=== PATIENT | male | born 1975 | race Hispanic/Latino ===

== ENCOUNTER 2017-01-28 17:21 | Emergency (ER) | payer BC, OTHER ==
--- NOTE | 2017-01-28 20:18 | C.PDOC ---
History Of Present Illness 41 year old male presents to the ED for evaluation of left ankle pain which began after he slipped and sustained a fall at work [employer]. Patient notes he twisted his left ankle during the fall and now has pain to the area. He denies head injury/LOC, nausea, vomiting, extremity numbness/weakness. Time Seen by Provider: 01/28/17 18:23 Chief Complaint (Nursing): Lower Extremity Problem/Injury History Per: Patient History/Exam Limitations: no limitations Onset/Duration Of Symptoms: Hrs Current Symptoms Are (Timing): Still Present Additional History Per: Patient - Ankle/Foot Description Of Injury: Twisted Past Medical History Reviewed: Historical Data, Nursing Documentation, Vital Signs Vital Signs: Last Vital Signs Temp 98.2 F 01/28/17 20:30 Pulse 89 01/28/17 20:30 Resp 18 01/28/17 20:30 BP 138/85 01/28/17 20:30 Pulse Ox 97 01/28/17 21:47 - Medical History PMH: Kidney Stones Surgical History: No Surg Hx Family History: States: Unknown Family Hx - Social History Hx Alcohol Use: Yes Hx Substance Use: No - Immunization History Hx Tetanus Toxoid Vaccination: No Hx Influenza Vaccination: No Hx Pneumococcal Vaccination: No Review Of Systems Gastrointestinal: Negative for: Nausea, Vomiting Musculoskeletal: Positive for: Other (left ankle pain ) Neurological: Negative for: Weakness, Numbness, Other (head injury/LOC ) Physical Exam - Physical Exam Appears: Non-toxic, No Acute Distress Skin: Normal Color, Warm, Dry Head: Atraumatic, Normacephalic Eye(s): bilateral: Normal Inspection, EOMI Nose: Normal Oral Mucosa: Moist Neck: Supple Chest: Symmetrical Respiratory: No Accessory Muscle Use Extremity: Normal ROM, Tenderness (to lateral aspect of left ankle ), No Calf Tenderness, Capillary Refill (less than 2 seconds ), No Deformity, Swelling (to lateral aspect of left ankle ) Pulses: Left Dorsalis Pedis: Normal, Right Dorsalis Pedis: Normal Neurological/Psych: Oriented x3, Normal Speech, Normal Cognition, Normal Sensation ED Course And Treatment O2 Sat by Pulse Oximetry: 97 (on RA) Pulse Ox Interpretation: Normal Progress Note: Left ankle XR ordered, results show no evidence of fracture or dislocation. Tylenol PO administered. Ankle Stirrup Splint applied to left ankle by reconnaissance man and was checked by me. On reassessment, patient is resting comfortably, showing no signs of distress and reports an improvement in his pain. Patient is instructed on RICE care and advised to follow up with his PMD within 1-2 days for further evaluation. Reassessment Condition: Improved Disposition - Disposition Referrals: Donna Mckeon MD [Staff Provider] - Disposition: HOME/ ROUTINE Disposition Time: 20:17 Condition: STABLE Additional Instructions: Rest, ice and elevate the area. Follow up with PMD in 1-2 days. Return to ER if symptoms persist or worsen. Instructions: Ankle Sprain (ED) Forms: [employer] (Telugu), Work Excuse - Clinical Impression Clinical Impression: Ankle sprain - PA / [employer] / Resident Statement MD/DO has reviewed & agrees with the documentation as recorded. - Scribe Statement The provider has reviewed the documentation as recorded by the Scribe (Yesenia Silva) All medical record entries made by the Scribe were at my direction and personally dictated by me. I have reviewed the chart and agree that the record accurately reflects my personal performance of the history, physical exam, medical decision making, and the department course for this patient. I have also personally directed, reviewed, and agree with the discharge instructions and disposition.
[2017-01-28 21:22] VITALS: BP 138/85; PULSE 89; RESP 18; TEMP 98.2
[2017-01-28 21:42] VITALS: O2SAT 97
--- NOTE | 2017-01-29 08:27 | RAD ---
PROCEDURE: Left Ankle Radiographs. HISTORY: pain COMPARISON: None FINDINGS: BONES: Ossification projects inferior to the medial malleolus. Tibiotalar spurring here also present. Inferior medial malleoli osseous hypertrophic changes present. Anterior tibiotalar spurring present. Inferior calcaneal spur. Achilles tendon insertional enthesophyte. Os trigone and os peroneum present JOINTS: Tibiotalar moderate osteoarthritis. Ankle mortise maintained. Talar dome intact SOFT TISSUES: Medial and lateral soft tissue swelling OTHER FINDINGS: None. IMPRESSION: Tibiotalar anterior medial osseous hypertrophic arthrosis. Bordering ossification here inferior to the medial malleolus. Inferior medial malleoli are osseous avulsion -of unknown chronicity probable. Ossific debris-another consideration. Calcaneal spurring and accessory ossification centers
== END 2017-01-28 20:56 | disposition home or self-care (01) ==
LOC: C.ER 17:21
DX: S93.402A Sprain of unspecified ligament of left ankle, initial encounter (principal); W01.0XXA Fall on same level from slipping, tripping and stumbling without subsequent striking against object, initial encounter; Y92.89 Other specified places as the place of occurrence of the external cause; Y99.0 Civilian activity done for income or pay